=== PATIENT | male | born 1960 | race Hispanic/Latino ===

== ENCOUNTER 2017-12-22 10:41 | Outpatient (CLI) | payer OTHER ==
--- NOTE | 2017-12-22 12:23 | RAD ---
PA AND LATERAL VIEWS CHEST: HISTORY: Dyspnea. FINDINGS: Comparison is made with the exam of 08/02/15. The heart size is normal. The lungs are expanded without focal areas of consolidation, pneumothorax, or pleural effusions. The right upper lobe pulmonary nodule is stable. No acute osseous abnormalit ies are seen. IMPRESSION: Stable exam. No acute process. POS: [facility]
== END 2017-12-22 10:42 | disposition home or self-care (01) ==
LOC: RAD 10:41
PROVIDERS: ATTEND Internal Medicine Pulmonary Disease
DX: R06.00 Dyspnea, unspecified (principal)
CPT/HCPCS: 71046